=== PATIENT | female | born 1960 | race Caucasian/White ===

== ENCOUNTER 2025-08-25 10:42 | Inpatient (IN) | payer MEDICARE, SELFPAY ==
[2025-08-25] VITALS (12 sets, daily range): BP systolic 138–203; BP diastolic 59–103; PULSE 85–117; RESP 12–23; TEMP 36.2–36.6; O2SAT 93–99; BMI 34.2; BMI 33.7
--- NOTE | 2025-08-25 10:56 | DI.RAD.S_ITS ---
PROCEDURE: XR CHEST 1V INDICATIONS: Chest Pain TECHNIQUE: One view of the chest was acquired. COMPARISON: None. FINDINGS: Surgical changes and devices: None. Lungs and pleura: Lungs are clear. No pleural effusions or pneumothorax. Mediastinum: Mediastinal contours appear normal. Heart size is normal. Bones and chest wall: No suspicious bony lesions. Overlying soft tissues appear unremarkable. IMPRESSION: No acute cardiopulmonary abnormality is seen. Approved by: Wilfredo Ríos M.D. on 08/25/2025 at 11:34
--- NOTE | 2025-08-25 11:14 | EKG_ITS ---
[place] [id number] [place] [id number] Test Date: 2025-08-25 Pat Name: Radha Randhawa Department: [facility] Room: Gender: Female [employer]: BEL : 1960 Requested By: Order Number: [id number] Reading MD: Byron Anand Measurements Intervals [place] Rate: 110 P: 65 NH: 184 QRS: 7 QRSD: 78 T: 84 QT: 340 QTc: 460 Interpretive Statements Sinus tachycardia Low voltage QRS Nonspecific T wave abnormality Electronically Signed On 08-28-2025 12:54:05 PST by Byron Anand
[2025-08-25 11:49] LABS: Add Manual Diff / Slide Review NO; Hematocrit 50.2 % (36-46); Hemoglobin 17.4 g/dL (12.0-16.0); Lymphocytes Absolute Auto 1600 /uL (1100-4500); Mean Corpuscular HGB Conc 34.7 % (30-36); Mean Corpuscular Hemoglobin 30.5 PG (26-34); Mean Corpuscular Volume 87.9 fL (80-100); Platelet Count 242 X10^3/uL (150-400)
[2025-08-25 11:58] LABS: Alanine Aminotransferase 79 IU/L (<35); Albumin 4.6 g/dL (3.5-5.0); Albumin Globulin Ratio 1.2 (1.0-2.8); Alkaline Phosphatase 159 U/L (38-126); Blood Urea Nitrogen 18 mg/dL (7-17); Calcium 9.4 mg/dL (8.4-10.2); Carbon Dioxide 28 mmol/L (22-32); Chloride 97 mmol/L (98-107); Creatine Kinase 27 U/L (30-135); Estimated Glomerular Filt Rate > 60 mL/min (>60); Globulin 4.0 g/dL (1.7-4.1); Glucose 387 mg/dL (70-99); HEMOLYSIS < 15 (0-50); Lipase 67 U/L (23-300); Magnesium 1.8 mg/dL (1.6-2.3); Potassium 5.0 mmol/L (3.4-5.1); Sodium 135 mmol/L (137-145); Total Protein 8.6 g/dL (6.3-8.2)
[2025-08-25 11:59] LABS: INR 1.0 (0.9-1.3); Prothrombin Time 11.7 SECONDS (9.4-12.5)
[2025-08-25 12:02] LABS: PTT Partial Thromboplastin Tim 34 SECONDS (25.1-36.5)
[2025-08-25 12:10] LABS: NT-proBNP (BNP-Adult 18+) < 20 pg/mL (<125); Troponin I < 0.012 ng/mL (0.01-0.034)
--- NOTE | 2025-08-25 13:15 | DI.CT.S_ITS ---
PROCEDURE: CT ANGIO HEAD AND NECK INDICATIONS: Numbness on L side of body TECHNIQUE: After the administration of intravenous contrast, 1 mm thick sections acquired from the aortic arch through the Jackson of Tariq. 3-dimensional vgikexx-onieceyle-nrddeqlwlt (MIP) and/or volume rendering reformats were acquired of the central intracranial vasculature and neck separately. For radiation dose reduction, the following was used: automated exposure control, adjustment of mA and/or kV according to patient size. COMPARISON: [facility], CT, CT STROKE, 08/25/2025, 13:25. FINDINGS: Image quality: Diagnostic. Cerebral CT Angiogram: Internal carotid arteries: No acute findings. Intracranial ICA are patent with no significant stenosis. No occlusion. No aneurysm. Anterior cerebral arteries: Unremarkable. No significant stenosis. No occlusion. No aneurysm. Middle cerebral arteries: Unremarkable. No significant stenosis. No occlusion. No aneurysm. Posterior cerebral arteries: Unremarkable. No significant stenosis. No occlusion. No aneurysm. Basilar artery: There is a moderate to severe focal proximal basilar artery stenosis. Reference coronal image 131 of series 5. Vertebral arteries: Left vertebral artery ends in PICA. Right vertebral artery is patent and tortuous. It gives rise to the basilar artery. Dural venous sinuses: Unremarkable given phase of enhancement. Other: Arterial phase appearance of the brain parenchyma is unremarkable. Neck CT Angiogram: Internal carotid arteries: Less than 50% bilateral proximal internal carotid artery stenosis.. No dissection or occlusion. Common carotid arteries: Unremarkable. No significant stenosis. No dissection or occlusion. External carotid arteries: Unremarkable. No occlusion. Vertebral arteries: Left vertebral artery ends in PICA. Right vertebral artery is tortuous. It gives rise to the basilar artery. Aortic Arch and Mediastinum: Partially visualized aortic arch unremarkable without evidence of aneurysm. Origins of the great vessels unremarkable. Other: Arterial phase soft tissues of the neck and chest are unremarkable. IMPRESSION: 1. Left vertebral artery is incidentally noted to end in PICA. 2. Moderate to severe focal basilar artery stenosis. 3. Otherwise unremarkable CTA head. 4. Bilateral less than 50% proximal internal carotid artery stenosis. Any quantitative measurements of stenosis were performed using NASCET criteria. Dictated by: Roscoe Sales M.D. on 08/25/2025 at 13:47 Approved by: Roscoe Sales M.D. on 08/25/2025 at 13:58
--- NOTE | 2025-08-25 13:15 | DI.CT.S_ITS ---
PROCEDURE: CT STROKE INDICATIONS: Numbness on L side of body TECHNIQUE: Noncontrast 4.5 mm thick angled axial sections acquired from the foramen magnum to the vertex, with coronal reformats. For radiation dose reduction, the following was used: automated exposure control, adjustment of mA and/or kV according to patient size. COMPARISON: None. FINDINGS: Image quality: Diagnostic. CSF spaces: Basal cisterns are patent. No extra-axial fluid collections. The ventricles are symmetric in size and shape. Brain: No intracranial bleeds or mass effect. There is cerebral volume loss, with resultant ventricular and sulcal prominence. There are periventricular and deep white matter chronic small vessel ischemic changes. There is intracranial internal carotid artery atherosclerosis. Skull and face: Calvarium and visualized facial bones appear intact, without suspicious lesions. Sinuses: Air-fluid level in left maxillary sinus. Dependent soft tissue in right maxillary sinus. Right sphenoid sinus mucosal thickening. Minimal patchy ethmoid disease. IMPRESSION: No acute intracranial pathology. Acute on chronic sinus disease. Comment: Findings were discussed with Dr. Mclain on 08/25/2025 at 1338 hours This study fulfills neurological imaging criteria for inclusion or exclusion of acute stroke therapies based on available published neurological guidelines. Dictated by: Roscoe Sales M.D. on 08/25/2025 at 13:37 Approved by: Roscoe Sales M.D. on 08/25/2025 at 13:44
--- NOTE | 2025-08-25 13:16 | DI.MRI.S_ITS ---
PROCEDURE: MR HEAD/BRAIN WO CON INDICATIONS: Numbness TECHNIQUE: Non-contrast axial T1 spin echo, axial T2 fast spin echo, sagittal and axial FLAIR, coronal T2 fast spin echo, axial gradient echo, axial diffusion and ADC through the brain. COMPARISON: [facility], CT, CT STROKE, 08/25/2025, 13:25. FINDINGS: Image quality: Excellent. CSF spaces: Ventricles appear symmetric in size and shape. Basal cisterns are patent. No extra-axial fluid collections. Brain: Small focus of diffusion restriction in the right thalamus. There is associated mild T2/FLAIR signal abnormality. No mass effect or hemorrhagic conversion. Small focus of chronic encephalomalacia in the genu of the corpus callosum on the right. There is mild cerebral volume loss for age. Skull and face: Calvarial bone marrow is normal in signal. Orbits are normal. Sinuses: Air-fluid levels are seen in the maxillary sinuses bilaterally. Mild diffuse mucosal thickening in the paranasal sinuses. Mastoid air cells are clear. IMPRESSION: Small focus of diffusion restriction in the right thalamus is compatible with a recent infarct. No significant mass effect or hemorrhagic conversion. Approved by: Wilfredo Ríos M.D. on 08/25/2025 at 14:56
--- NOTE | 2025-08-25 13:26 | ED_ITS ---
HPI - Neuro Symptoms/Deficit General Chief Complaint: Neuro Symptoms/Deficit Stated Complaint: Tingling on left side . Time Seen by Provider: 08/25/25 12:44 Mode of arrival: Ambulatory History of Present Illness HPI Narrative: 65-year-old female with no significant cardiac history, no stroke history, history of hypertension and hyperlipidemia, presenting with acute onset left face arm and leg numbness today. States she checked her blood pressure which was 149 systolic at the time. Upon arriving to the ER above 200 systolic, patient attributes this to anxiety. denies fevers, chills, nausea, vomiting, diarrhea, abdominal pain, chest pain, shortness of breath, dizziness, headache, or urinary symptoms. On Anticoagulants: No Related Data Home Medications ?Medication ?Instructions ?Recorded ?Confirmed cyclobenzaprine 10 mg tablet 5 mg PO DAILY 08/25/25 irbesartan 300 mg tablet 300 mg PO DAILY 08/25/2512/15 levothyroxine 150 mcg tablet 150 mcg PO DAILY 08/25/25 08/25/25 (Euthyrox) Previous Rx's ?Medication ?Instructions ?Recorded amlodipine 5 mg tablet 5 mg PO BID #180 tabs aspirin 81 mg tablet,delayed 81 mg PO DAILY #100 tabs 08/27/25 release atorvastatin 20 mg tablet 80 mg (4 x 20 mg) PO BEDTIME #90 08/27/25 tabs clopidogrel 75 mg tablet 75 mg PO DAILY #21 tabs 02/14 Allergies Allergy/AdvReac Type Severity Reaction Status Date / Time Sulfa (Sulfonamide Allergy Severe Rash Verified 08/25/25 10:52 Antibiotics) Review of Systems Review of Systems ROS Unobtainable: All systems reviewed & are unremarkable except as noted in HPI and below Hematologic/Lymphatic On Anticoagulants: No Patient History Social History household members: spouse Smoking Status: Never smoker alcohol intake: never Smoking Status: Never smoker Exam Initial Vital Signs Initial Vital Signs: Vital Signs Pulse Rate 116 H 08/25/25 10:48 Respiratory Rate 16 08/25/25 10:48 Blood Pressure 203/99 H 08/25/25 10:48 Pulse Oximetry 96 08/25/25 10:48 Oxygen Delivery Method Room Air 08/25/25 10:48 Const General: cooperative, healthy appearing, comfortable, well developed and well hydrated Nutritional Appearance: average body habitus HENMT Head: normal to inspection Ears: external ears normal Nose: external nose normal and nares normal Face and sinus: sinuses nontender, face symmetric, ecchymosis not on the right, not on the left and not bilaterally, erythema not on the right, not on the left and not bilaterally and edema not on the right, not on the left and not bilaterally Mouth: lip normal Eyes General: Yes appearance normal, both eyes and all related structures Eyelids: eyelids normal Sclera: sclerae normal Pupils: PERRL Neck Neck: normal visual inspection Resp Effort & Inspection: normal respiratory effort and able to speak in complete sentences Cardio Rate: regular rate Rhythm: regular rhythm Pulses: radial pulses present GI Inspection: normal to inspection and non-distended General: bimanual renal exam normal bilaterally Back/Spine/Pelvis Back: normal to inspection Skin General: no rashes or lesions noted Neuro General: patient alert, patient awake, patient oriented x3, gait normal, moves all extremities, normal light touch, pain and propioception, no focal motor deficits and CN's II-XI intact bilaterally Cognition: normal cognition Speech: speech normal Gait: normal gait Motor: muscle tone normal throughout Sensory Exam: no sensory deficits noted Extrem General: normal to inspection Psych Appearance: grossly normal Mental Status: mental status grossly normal Speech and Movement: speech and movement normal Mood: congruent mood Attitude: cooperative Thought Process: normal Thought Content: normal Judgment: judgment good Course Orders Ordered: Discontinued Medications Acetaminophen (Acetaminophen 325 Mg Tablet) 650 mg PO Q6H PRN PRN Reason: Fever/Mild Pain (1-3) Amlodipine Besylate (Amlodipine 5 Mg Tablet) 5 mg PO NOW ONE Stop: 08/26/25 08:17 Last Admin: 08/26/25 08:26 Dose: 5 mg Documented By: ED Amlodipine Besylate (Amlodipine 5 Mg Tablet) 5 mg PO BID [facility] Last Admin: 08/27/25 08:41 Dose: 5 mg Documented By: Admin: 08/26/25 22:06 Dose: 5 mg Documented By: Admin: 08/26/25 20:23 Dose: 5 mg Documented By: RADHA Aspirin (Aspirin 81 Mg Chew Tab) 324 mg PO NOW ONE Stop: 08/25/25 10:57 Aspirin (Aspirin Ec 81 Mg Tablet) 81 mg PO NOW ONE Stop: 08/25/25 15:37 Last Admin: 08/25/25 17:54 Dose: 81 mg Documented By: JOSE Aspirin (Aspirin Ec 81 Mg Tablet) 81 mg PO DAILY [facility] Last Admin: 08/27/25 08:41 Dose: 81 mg Documented By: Admin: 08/26/25 08:27 Dose: 81 mg Documented By: ED Atorvastatin Calcium (Atorvastatin 20 Mg Tablet) 80 mg PO BEDTIME [facility] Last Admin: 08/26/25 20:23 Dose: 80 mg Documented By: Admin: 08/25/25 21:40 Dose: 80 mg Documented By: SULLY Clopidogrel Bisulfate (Clopidogrel 75 Mg Tablet) 300 mg PO NOW ONE Stop: 08/25/25 15:37 Last Admin: 08/25/25 17:53 Dose: 300 mg Documented By: JOSE Clopidogrel Bisulfate (Clopidogrel 75 Mg Tablet) 75 mg PO DAILY [facility] Last Admin: 08/27/25 08:41 Dose: 75 mg Documented By: Admin: 08/26/25 08:27 Dose: 75 mg Documented By: ED Cyclobenzaprine HCl (Cyclobenzaprine 10 Mg Tablet) 5 mg PO DAILY [facility] Last Admin: 08/27/25 08:32 Dose: Not Given Documented By: GUILHERME Sodium Chloride (Normal Saline 0.9%) 1,870 mls @ 1,870 mls/hr 20 ml/kg infuse over 1 hr (1870 ml) IV NOW ONE Stop: 08/25/25 15:38 Last Infusion: 08/25/25 19:13 Dose: Infused Documented By: Admin: 08/25/25 15:15 Dose: 1,870 mls/hr Documented By: SHERRIE Labetalol HCl (Labetalol 20 Mg/4 Ml Syringe) 20 mg IV NOW ONE Stop: 08/25/25 13:23 Last Admin: 08/25/25 14:08 Dose: 20 mg Documented By: SHERRIE Levothyroxine Sodium (Levothyroxine 75 Mcg Tablet) 150 mcg PO DAILY@0600 [facility] Last Admin: 08/27/25 05:58 Dose: 150 mcg Documented By: Admin: 08/26/25 15:06 Dose: 150 mcg Documented By: ED Losartan Potassium (Losartan 50 Mg Tablet) 100 mg PO DAILY [facility] Last Admin: 08/27/25 08:41 Dose: 100 mg Documented By: GUILHERME Naloxone HCl (Naloxone 0.4 Mg/Ml Vial) 0.2 mg IV Q2MIN PRN PRN Reason: Opiate Reversal Non-Formulary Medication (Levothyroxine [Euthyrox]) 150 mcg PO DAILY [facility] Ondansetron HCl (Ondansetron 4 Mg/2 Ml Inj) 4 mg IV Q8HR PRN PRN Reason: Nausea And Vomiting Vital Signs Vital signs: Vital Signs - 8 hr 08/25/25 10:48 Pulse Rate 116 H Respiratory Rate 16 Blood Pressure 203/99 H Pulse Oximetry 96 Oxygen Delivery Method Room Air MDM - Neuro Symptoms/Deficit Lab Data 08/25/25 11:32 08/25/25 11:32 Labs: Lab Results 08/25/25 08/25/25 Range/Units 11:32 14:14 WBC 6.5 (4.5-11.0) X10^3/uL RBC 5.71 H (4.0-5.2) X10^6/uL Hgb 17.4 H (12.0-16.0) g/dL Hct 50.2 H (36-46) % MCV 87.9 (80-100) fL MCH 30.5 (26-34) PG MCHC 34.7 (30-36) % RDW 14.2 (11.6-14.8) % Plt Count 242 (150-400) X10^3/uL Neut % (Auto) 65.7 (50-75) % Lymph % (Auto) 25.3 (25-40) % Brown % (Auto) 6.0 (3-14) % Eos % (Auto) 1.8 L (2-4) % Baso % (Auto) 1.2 (0-2) % Neut # (Auto) 4300 (1174-9675) /uL Lymph # (Auto) 1600 (3647-0554) /uL Brown # (Auto) 400 (0-900) /uL Eos # (Auto) 100 (0-450) /uL Baso # (Auto) 100 (0-100) /uL PT 11.7 (9.4-12.5) SECONDS INR 1.0 (0.9-1.3) APTT 34 (25.1-36.5) SECONDS Sodium 135 L (137-145) mmol/L Potassium 5.0 (3.4-5.1) mmol/L Chloride 97 L (98-107) mmol/L Carbon Dioxide 28 (22-32) mmol/L BUN 18 H (7-17) mg/dL Creatinine 0.62 (0.52-1.04) mg/dL Estimated GFR > 60 (>60) mL/min BUN/Creatinine Ratio 29.0 H (6-22) Glucose 387 H (70-99) mg/dL Hemoglobin A1c 11.8 H (4.0-6.0) % Calcium 9.4 (8.4-10.2) mg/dL Magnesium 1.8 (1.6-2.3) mg/dL Total Bilirubin 0.7 (0.2-1.3) mg/dL AST 82 H (14-36) IU/L ALT 79 H (<35) IU/L Alkaline Phosphatase 159 H (38-126) U/L Total Creatine Kinase 27 L 30 (30-135) U/L Troponin I < 0.012 < 0.012 (0.01-0.034) ng/mL NT-Pro-B Natriuret Pep < 20 (<125) pg/mL Total Protein 8.6 H (6.3-8.2) g/dL Albumin 4.6 (3.5-5.0) g/dL Globulin 4.0 (1.7-4.1) g/dL Albumin/Globulin Ratio 1.2 (1.0-2.8) Triglycerides 303 H (35-150) mg/dL Cholesterol 261 H (140-199) mg/dL LDL Cholesterol, Calc 166 H (<100) mg/dL HDL Cholesterol 34 L (40-60) mg/dL Lipase 67 (23-300) U/L Ethyl Alcohol < 10 (<10) mg/dL MDM Narrative Medical decision making narrative: CODE Stroke: Pt presents with stroke like sxg. Chest x-ray to evaluate for evidence of CHF. EKG/troponin to evaluate for evidence of arrhythmia/ACS/AMI. Labwork to evaluate for evidence of anemia, electrolyte abnl including hypokalemia, hyperkalemia, hyponatremia, hypernatremia, hyperglycemia, hypoglycemia. CT brain to evaluate for evidence of mass/CVA/TIA. Patient with NIHSS of 0, negative test of skew, slightly abnormal gait. Will admit pending MRI due to high possibility of CVA Discharge Plan Departure Patient Disposition: Admitted As Inpatient Clinical Impression: Cerebrovascular accident Admit Date/Time: 08/25/25 15:45 Admit Provider: Jonatan Marks
[2025-08-25] MEDS: LABETALOL 20 MG/4 ML SYRINGE IV (14:08)
[2025-08-25 14:39] LABS: Creatine Kinase 30 U/L (30-135); Ethanol (ETOH) < 10 mg/dL (<10)
[2025-08-25 14:51] LABS: Troponin I < 0.012 ng/mL (0.01-0.034)
--- NOTE | 2025-08-25 16:29 | DI.ECHO.S_ITS ---
[facility] : : [address] : : [place] : : [id number] : : Phone: [phone] Echocardiogram Report + + :Name: PAUL GARNICA Study Date: 08/26/2025 Height: 65 in : :[facility] ReadingLocation: Weight: 203 lb : : Gender: Female BSA: 2.0 m2 : :: 1960 Age: 65 yrs BP: 165/100 mmHg: :Reason For Study: STROKE : :Ordering Physician: BAILEY : :DEANA Performed By: Andrea Donahue : :Referring: DEANA AVALOS : + + Interpretation Summary Left ventricular wall thickness is mildly increased. The ejection fraction is estimated to be 55-60%. Normal diastolic function. The right ventricle is normal in size and function. No significant valvular abnormalities. Pulmonary artery pressures cannot be estimated because of the lack of a measurable TR jet velocity. Procedure: A two-dimensional transthoracic echocardiogram with color flow and Doppler was performed. The study quality was technically adequate. There is no prior echocardiogram noted for this patient. The patient was in normal sinus rhythm during the exam. Left Ventricle: The left ventricle is normal in size. Left ventricular wall thickness is mildly increased. There is no ventricular septal defect visualized. The ejection fraction is estimated to be 55-60%. There are no focal wall motion abnormalities. Normal diastolic function. Right Ventricle: The right ventricle is normal in size and function. Atria: The left atrial size is normal. Right atrium not well visualized. The interatrial septum is not well visualized. Mitral Valve: There is mild mitral annular calcification. The mitral valve leaflets are mildly calcified. There is no mitral regurgitation noted. Aortic Valve: The aortic valve is slightly calcified. There is no aortic valve stenosis. No aortic regurgitation is present. Tricuspid Valve: The tricuspid valve is not well visualized, but is grossly normal. No tricuspid regurgitation. Pulmonary artery pressures cannot be estimated because of the lack of a measurable TR jet velocity. Pulmonic Valve: The pulmonic valve is not well visualized. There is no pulmonic valvular regurgitation. Great Vessels: The aortic root is normal size. The ascending aorta could not be visualized. The pulmonary is not well visualized. The inferior vena cava was not visualized. Pericardium/ Pleura There is no pericardial effusion. MMode/2D Measurements & Calculations LVIDd: 4.5 cm LVOT diam: 2.0 cm LVIDs: 3.1 cm Ao root diam: 3.3 cm FS: 30.9 % EPSS: 0.63 cm IVSd: 1.1 cm LVPWd: 1.1 cm LV antony. diameter/BSA (cm/m^2): 2.2 LV sys. diameter/BSA (cm/m^2): 1.5 LA A2 area: 16.6 cm2 TAPSE: 2.0 cm LA A4 area: 16.3 cm2 LA length (vol): 4.8 cm LA vol: 48.0 ml LA vol index: 24.1 ml/m2 Doppler Measurements & Calculations Ao V2 max: 116.7 cm/sec LVOT Max Blayne: 88.3 cm/sec Ao V2 mean: 83.3 cm/sec LV V1 max P.1 mmHg Ao max P.4 mmHg LV V1 VTI: 17.9 cm Ao mean P.0 mmHg AARON(I,D): 2.7 cm2 Ao V2 VTI: 20.9 cm AARON(V,D): 2.4 cm2 sev ratio: 0.85 AARON indexed to BSA (cm^2/m^2): 1.4 MV E max blayne: 75.8 cm/sec PA V2 max: 96.7 cm/sec MV A max blayne: 89.0 cm/sec PA V2 mean: 69.4 cm/sec MV E/A: 0.85 PA mean P.1 mmHg Med Peak E' Blayne: 6.8 cm/sec PA pr(Accel): 53.3 mmHg E/E' med: 11.2 Lat Peak E' Blayne: 9.4 cm/sec E/E' lat: 8.0 E/e' average: 9.6 MV dec time: 0.17 sec SV(LVOT): 57.1 ml Reading Physician:11:40 AM
[2025-08-25 17:31] LABS: Cholesterol 261 mg/dL (140-199); HDL Cholesterol 34 mg/dL (40-60); Triglycerides 303 mg/dL (35-150)
[2025-08-25 17:34] LABS: Hemoglobin A1C% w Est Avg Glu 11.8 % (4.0-6.0)
--- NOTE | 2025-08-25 17:37 | P.HP_ITS ---
History of Present Illness History of Present Illness Date Patient Seen: 08/25/25 Chief complaint: Tingling on left side right basal ganglia infarct Narrative: Chief complaint: Tingling left-sided left-sided weakness secondary to basal ganglia infarct with contralateral right facial asymmetry History of present illness: 08/25: 65-year-old female with a history of refractory hypertension over 30 years acute onset of left face arm and leg numbness today checked her blood pressure which was 149 at the time but greater than 200 systolic. She has been on antihypertensives per her report but does not remember what these are Findings in the emergency department significant for: Systolic blood pressure greater than 200 Total cholesterol 261 LDL 166 HDL 34 triglycerides 303 MRI demonstrating: Acute Right thalamic infarct CT angiography demonstratin. Left vertebral artery is incidentally noted to end in PICA. 2. Moderate to severe focal basilar artery stenosis. 3. Otherwise unremarkable CTA head. 4. Bilateral less than 50% proximal internal carotid artery stenosis. Patient received loading dose of aspirin 325 and Plavix 300 mg in the emergency depart. Review of systems: No fever or chills rigors No headache diplopia blurred vision No chest pain palpitations shortness for breath No abdominal pain diarrhea constipation No rest pain Physical examination: Elderly female no acute distress HEENT slight facial asymmetry right compared to left Neck left carotid bruit Heart rate and rhythm regular no murmurs Lungs clear Extremities no edema neurologic exam: NIH score 0 Slight right-sided facial palsy compared to left Tongue does not deviate Visual pickens intact Extraocular motions intact Normal strength in right upper extremity 4/5 in left upper extremity and 4 5 in left lower extremity can not stand on left leg alone Negative Romberg Normal [id number] Right thalamic infarct with high-grade stenosis in basilar artery which may be culprit * Good response to loading dose of Plavix and aspirin * Dual antiplatelet * High-intensity statin * Permissive hypertension * Start low-dose amlodipine tomorrow * Case discussed with Neurology on-call and [facility] Dr. Rhodes who is in agreement with the treatment and does not feel that intervention other than medical is indicated DVT prophylaxis: * Subcutaneous heparin Code status: * Full code blue Disposition: * Inpatient expect 2 days of hospitalization Time based billing: * 35 minutes were involved in the evaluation of this patient including [id number] evaluation physical examination complex neurologic examination review of objective laboratory findings and imaging including direct visualization of imaging discussion with emergency provider [facility] Social History Smoking Status: Never smoker Meds Home Medications and Allergies Allergies Allergy/AdvReac Type Severity Reaction Status Date / Time Sulfa (Sulfonamide Allergy Severe Rash Verified 08/25/25 10:52 Antibiotics) Exam Vital Signs (past 8 hours): - 08/25/25 10:48 08/25/25 14:08 08/25/25 14:55 Pulse Rate 116 H 117 H 87 Respiratory Rate 16 Blood Pressure 203/99 H 183/88 H Pulse Oximetry 96 93 Oxygen Delivery Method Room Air 08/25/25 14:57 08/25/25 14:57 08/25/25 15:00 Pulse Rate 89 86 Respiratory Rate 16 12 Blood Pressure 138/96 H Pulse Oximetry 93 93 Oxygen Delivery Method 08/25/25 15:00 08/25/25 15:30 08/25/25 15:30 Pulse Rate 85 Respiratory Rate 19 Blood Pressure 147/93 H 161/69 H Pulse Oximetry 94 Oxygen Delivery Method 08/25/25 16:00 08/25/25 16:21 08/25/25 16:21 Pulse Rate 88 86 Respiratory Rate 23 20 Blood Pressure 176/79 H Pulse Oximetry 95 94 Oxygen Delivery Method 08/25/25 16:30 08/25/25 16:30 08/25/25 17:05 Pulse Rate 85 87 Respiratory Rate 18 19 Blood Pressure 161/59 H Pulse Oximetry 94 Oxygen Delivery Method Room Air Oxygen Delivery Method Room Air Objective Labs 08/25/25 11:32 08/25/25 11:32 Labs: Laboratory Results - last 24 hr 08/25/25 08/25/25 11:32 14:14 WBC 6.5 RBC 5.71 H Hgb 17.4 H Hct 50.2 H MCV 87.9 MCH 30.5 MCHC 34.7 RDW 14.2 Plt Count 242 Neut % (Auto) 65.7 Lymph % (Auto) 25.3 Gaines % (Auto) 6.0 Eos % (Auto) 1.8 L Baso % (Auto) 1.2 Neut # (Auto) 4300 Lymph # (Auto) 1600 Gaines # (Auto) 400 Eos # (Auto) 100 Baso # (Auto) 100 PT 11.7 INR 1.0 APTT 34 Sodium 135 L Potassium 5.0 Chloride 97 L Carbon Dioxide 28 BUN 18 H Creatinine 0.62 Estimated GFR > 60 BUN/Creatinine Ratio 29.0 H Glucose 387 H Calcium 9.4 Magnesium 1.8 Total Bilirubin 0.7 AST 82 H ALT 79 H Alkaline Phosphatase 159 H Total Creatine Kinase 27 L 30 Troponin I < 0.012 < 0.012 NT-Pro-B Natriuret Pep < 20 Total Protein 8.6 H Albumin 4.6 Globulin 4.0 Albumin/Globulin Ratio 1.2 Triglycerides 303 H Cholesterol 261 H LDL Cholesterol, Calc 166 H HDL Cholesterol 34 L Lipase 67 Ethyl Alcohol < 10 Assessment & Plan Time-Based Coding :: [TOTAL MINUTES] spent with patient and on the chart (including review of chart, obtaining history, exam, reviewing outside data, placing orders, documenting exam and treatment plan, and counseling patient) on [DATE].
[2025-08-25] MEDS: CLOPIDOGREL 75 MG TABLET 300 MG PO (17:53)
[2025-08-25] MEDS: ASPIRIN EC 81 MG TABLET PO (17:54)
--- NOTE | 2025-08-25 19:15 | PC.NURSE ---
Patient denies anymore tingling to the left side. At this time her NIH scale is a O. She is on tele, NSR.
[2025-08-25] MEDS: ATORVASTATIN 20 MG TABLET 80 MG PO (21:40)
[2025-08-26 01:00] VITALS: BP 165/100; PULSE 85; RESP 16; TEMP 36.4; O2SAT 97
[2025-08-26 05:00] VITALS: BP 133/93; PULSE 84; RESP 16; TEMP 36.6; O2SAT 94
[2025-08-26 08:17] VITALS: BP 174/101; PULSE 87; RESP 18; TEMP 36.3; O2SAT 97
[2025-08-26] MEDS: CLOPIDOGREL 75 MG TABLET PO (08:27)
[2025-08-26] MEDS: ASPIRIN EC 81 MG TABLET PO (08:27)
--- NOTE | 2025-08-26 09:45 | PT.IIE ---
Addendum entered and electronically signed by Tracy Coleman, PT 08/26/25 11:15: note sent to Physician for sign off on plan of care Original Note: Physical Therapy Inpatient Evaluation/Re-Eval M1 PT IP Prior Functional Status Start: 08/26/25 10:23 Freq: NEEDED Status: Active Protocol: Document 08/26/25 09:45 DLM (Rec: 08/26/25 10:42 DLM Desktop) Medical Review Prior Functional Status Medical History Yes Reviewed Diet/Fluid Regular Consistency Communication glasses, WNL Mobility and Gait Independent, no device, active, has taken exercise class at [employer], walks for exercise in good weather Activities of Daily Independent. She likes to noelle nichols cook. In the Living and IADL's summer she gardens. She drives Social History Household Members spouse Living Arrangements House Number of Floors ( One Floor Floors) Number of Stairs To 2 steps, can hold one rail Enter/Railing? Home Environment Standard Height Toilet,High Toilet,Tub/Shower Employment Status Retired Additional Social has walking stick History Comment M2 PT-IP Current Condition Start: 08/26/25 10:23 Freq: NEEDED Status: Active Protocol: Document 08/26/25 09:45 DLM (Rec: 08/26/25 10:42 DLM Desktop) Physical Therapy Current Condition Current Condition Evaluation Date 08/26/25 Treatment Diagnosis Right thalamic infarct, left hemiparesis Onset Date 08/25/25 M3 PT-IP Subjective Start: 08/26/25 10:23 Freq: NEEDED Status: Active Protocol: Document 08/26/25 09:45 DLM (Rec: 08/26/25 10:42 DLM Desktop) Subjective Physical Therapy Visit Type Type Initial Evaluation Visit Start Time 09:00 Visit Stop Time 09:45 Notes 45 min Number of CIRCULAR SAWYER STONE Visits 0 Physical Therapy Visit Comments Patient Comments She reports sleeping poorly last night due to being at the hospital. She states left facial numbness has improved. Her left UE feels heavy and dyscoordinated. She has been able to use her left hand functionally. Patient Goals She wants to go home and be independent Therapy Pain Assessment Pain When Pain Assessed During Mobility Pain Present Pain Present Denied Pain M4 PT-IP Mobility and Gait Start: 08/26/25 10:23 Freq: NEEDED Status: Active Protocol: Document 08/26/25 09:45 DLM (Rec: 08/26/25 10:42 DLM Desktop) PT-Bed Mobility Assessment Rolling Level of Assist Independent Supine to Sit Supine to Sit Independent Sit to Supine Sit to Supine Independent Scooting Scooting to Edge of Independent Bed Scooting Up and Down Independent in Bed PT-Transfer Assessment Sit to and From Stand Sit to and from Independent Stand Equipment Transfer Assistive Gait Belt Device Transfers Transfer Destination Bed,Chair Transfer Technique Stand Step Pivot Transfer Ability Level of Assist Independent Gait Assessment Gait Gait Assistance Standby Assistance Required: Distance (Feet) 250 Assistive Devices Assistive Device Gait Belt Gait Deviations General Gait Pattern Antalgic,Decreased Stride Length,Decreased Feet Clearance Factors Limiting Gait Function Factors Limiting Decreased Activity Tolerance,Incoordination Gait Function Comments Gait Comments mild right lean during gait without loss of balance, mild decreased feet clearance with left worse than right, mild decreased coordination left LE in swing phase Stair Climbing Assessment Evaluation Level of Assist On Standby Assistance Stairs Devices Stair Climbing Left Railing Assistive Devices Technique/Endurance Stair Climbing Ascend and Descend Direction Stair Climbing Step Over Step Technique Number of Steps 3 Climbed Query Text: Stair Climbing Set # 2 Repetitions (reps) Comments Stair Climbing she needs verbal cues for safe placement of left foot Comments on step, left foot intermittently is half off the step PT-Balance Assessment Sitting Balance and Reactions Static Sitting Normal Balance Ability Dynamic Sitting Normal Balance Ability Standing Balance and Reactions Static Standing Good Balance Ability Dynamic Standing Fair Balance Ability Balance Tests Single Limb Standing unsteady on right, left 3 sec Romberg increased sway with drift to right Tandem Standing needs assist to hold Comments Other Balance Tests/ pt needed UE support to place feet together in standing Deviations/Treatment , no loss of balance with head motions up/down but mild : losses of balance with right/left head turns in static standing M5 PT-IP Objective Assessments Start: 08/26/25 10:23 Freq: NEEDED Status: Active Protocol: Document 08/26/25 09:45 DLM (Rec: 08/26/25 10:42 DLM Desktop) Orientation Orientation/Cognition Level of Alertness Alert Orientation Name,Age,Birthday,Month,Date,Year,Day of Week,Place, Situation Language Function No Deficits Noted Ability Safety Awareness Understands Safety Issues Memory Description No Deficits Noted Comments decreased awareness of deficits that improved with education Gross Range of Motion Upper Extremity ROM Assessment Within Functional Limits Lower Extremity ROM Assessment Within Functional Limits Strength Upper Extremity Strength Assessment Within Functional Limits Lower Extremity Strength Assessment Within Functional Limits Coordination Assessment Gross Coordination Gross Coordination Impaired Assessment Foot Tapping Test Minimal Impairment Heel on Knight Test Minimal Impairment Sensation Assessment Sensation Gross Sensation Left UE Impaired Sensation Numbness Description Comments Sensation Comments mild numbness in face that is improving, mild numbness in UE and LE but can feel touch Muscle Tone Muscle Tone WNL Yes M6 PT-IP Treatment Start: 08/26/25 10:23 Freq: NEEDED Status: Active Protocol: Document 08/26/25 09:45 DLM (Rec: 08/26/25 10:42 DLM Desktop) Physical Therapy Treatment Exercises Exercises Ankle Pumps Education Education Provided Safety Other Treatments Other Treatment Educated pt on clinical findings this visit, Her Spouse Performed arrived during this visit and he participated in education, Education to decrease her fall risks including monitoring left side during mobility to prevent trips/ slips, using night lights, slowing pace of gait to improve left LE function especially on stairs M7 PT-IP Assessment and Plan Start: 08/26/25 10:23 Freq: NEEDED Status: Active Protocol: Document 08/26/25 09:45 DLM (Rec: 08/26/25 10:42 DLM Desktop) PT Summary Assessment and Plan Potential Rehabilitation Good Potential Status of Condition Evolving at Evaluation Summary Impairments Balance,Coordination,Sensation,Gait,Activity Tolerance Assessment Summary Radha is alert and sitting up in the recliner today. She was admitted with left sided symptoms and MRI shows right thalamic infarct. Clinically she presents with mild left UE and LE deficits of decreased coordination and decreased proprioception. She has a left UE drift with testing. Noted left UE posturing during gait and mobility. She is using left UE and LE functionally. Her balance testing shows a mild to moderate impairment in her midline orientation with a right drift. Her gait shows decreased coordination in left LE during swing phase of gait. Pt feels safe to discharge home with her Spouse when she is medically stable. Recommend discharge home with out-pt Physical Therapy when she leaves the hospital. 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 5 sec each LE Days to Meet Goals 5 Frequency of Treatment Frequency Of Once a Day Treatment Treatment Plan Physical Therapy Gait Training,Therapeutic Exercise,Balance Retraining, Treatment Plan Discharge Planning,Neuromuscular Re-ed,Coordination Retraining Other focus on left sided coordination Recommendations and Next Treatment Focus Precautions Other Precautions labile blood pressure Recommendations To Nursing Amount of Assist Standby Assistance Needed Discharge Recommendations PT Discharge Home,Outpatient PT Recommendations Other Discharge Spouse is able to assist if needed Recommendations Transportation Needs Private Vehicle at Discharge - PT assist 1
--- NOTE | 2025-08-26 09:50 | PC.NURSE ---
Patient doing well this morning, having a little difficulty with leg when amublating but did well with PT. Her blood pressure was 190 systolic and 5mg of amlodipine given. She ate breakfast and is resting comfortably.
--- NOTE | 2025-08-26 10:04 | SLP.IPNOTE ---
Chart reviewed and RN consulted. RN reported pt passed nursing swallow screen and reported no concerns re: speech, language, or cognition. Pt agreeable to COLOR TESTER screen. Spouse at bedside. Pt reported initial left-sided facial tingling and weakness have fully resolved at this point. She denied overt s/sx of dysphagia. She expressed no changes to speech, language, or cognitive-communication function. Pt's speech was clear and intelligible. She was able to discuss history and respond to questions about baseline function without difficulty. She stated she feels back to normal and her spouse was in agreement. No further COLOR TESTER services are warranted at this time as pt is back to baseline, though she may benefit from PT/OT given ongoing weakness/tingling of left-sided extremities per pt report. Recommended pt monitor overall speech, language, swallowing, and cognition function and consult her PCP if she notes any changes following discharge. Pt agreeable to plan.
--- NOTE | 2025-08-26 11:10 | OT.IP.EVAL ---
Occupational Therapy Inpatient Evaluation/Re-Eval M1 OT IP Prior Functional Status Start: 08/26/25 11:11 Freq: Status: Active Protocol: Document 08/26/25 11:11 [facility] (Rec: 08/26/25 11:29 [facility] Desktop) Medical Review Prior Functional Status Medical History Yes Reviewed Diet/Fluid Regular Consistency Communication glasses, WNL Mobility and Gait Independent, no device, active, has taken exercise class at [employer], walks for exercise in good weather Activities of Daily Independent. She likes to noelle nichols cook. In the Living and IADL's summer she gardens. She drives Social History Household Members spouse Living Arrangements House Number of Floors ( One Floor Floors) Number of Stairs To 2 steps, can hold one rail Enter/Railing? Home Environment Standard Height Toilet,High Toilet,Tub/Shower Employment Status Retired Additional Social has walking stick History Comment M2 OT-IP Current Condition Start: 08/26/25 11:11 Freq: Status: Active Protocol: Document 08/26/25 11:11 [facility] (Rec: 08/26/25 11:29 [facility] Desktop) Occupational Therapy Current Condition Current Condition Evaluation Date 08/26/25 Treatment Diagnosis Right thalamic CVA Diagnosis Onset Date 08/25/25 M3 OT- IP Subjective and Pain Start: 08/26/25 11:11 Freq: Status: Active Protocol: Document 08/26/25 11:11 [facility] (Rec: 08/26/25 11:29 [facility] Desktop) OT- Subjective Occupational Therapy Visit Type Type Initial Evaluation Visit Start Time 10:25 Visit Stop Time 11:10 Occupational Therapy Visit Comments Patient Comments Pt agreed to get up for oral care needs and do cognitive assessments. Patient/Caregiver TO go home. Goals OT Pain Assessment Pain When Pain Assessed At Rest Pain Present Pain Present Denied Pain M4 OT- IP ADL's Start: 08/26/25 11:11 Freq: Status: Active Protocol: Document 08/26/25 11:11 [facility] (Rec: 08/26/25 11:29 [facility] Desktop) OT [id number] Comments OT Self-Feeding Not at meal time. Comments OT ADL-Grooming General Evaluation Areas Needing Retrieving/Set-up of Grooming Items Assistance Comments OT Grooming Comments Set-up to open items. OT ADL-Oral Care General Eval Areas of Assistance Retrieving/Set-Up of Items Comments Oral Care Comments Set-up to opens. OT ADL-Dressing Comments OT Dressing Comments Pt will need assist for buttons and zippers. OT ADL-Toileting General Evaluation Toileting Ability Independent M5 OT- IP IADL's Start: 08/26/25 11:11 Freq: Status: Active Protocol: Document 08/26/25 11:11 [facility] (Rec: 08/26/25 11:29 [facility] Desktop) OT-Instrumental Activities of Daily Living Home Safety Awareness Awareness of Need Good Awareness for Assistance at Home Ability to Problem Able to Problem Solve Solve Emergency Situations Medication Management Medication Pt will benefit from supervision. Management Comments Money Management Money Management Pt will benefit from supervision. Comments Meal Preparation Meal Preparation Pt suggested to stay away from knifes and sharp objects Comments due to decreased proprioception with left hand initially. Otherwise to be very mindful visually what she is doing. 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 Comments Driving Driving Comments Pt aware that she is going to not drive at this time. M6 OT- IP Functional Cognition Start: 08/26/25 11:11 Freq: Status: Active Protocol: Document 08/26/25 11:11 [facility] (Rec: 08/26/25 11:29 [facility] Desktop) Cognitive Factors Limiting Selfcare Function Cognitive Ability Level of Alertness Alert Patient Orientation Name,Age,Birthday,Month,Date,Year,Day of Week,Place, Situation Attention Span Capable of Focused Attention,Capable of Sustained Ability Attention Ability to Follow Able to Follow Multi-Step Commands Commands Memory Description Short Term Impaired Safety Awareness No Deficits Noted Problem Solving No deficits Noted Ability Cognitive Tests SLUMS Pt scored 24/30 which implies mild neurocognitive disorder, pt able to recall 3/5 objects after time passed, not able to draw the hour hands correctly after time given, and able to answer 3/4 questions right after time passed. Cognitive Comments Cognitive Assessment Pt admits that recently she has been having more Comments difficulty with her STM. Went over strategies to help improve her STM. OT- Vision and Hearing OT- Hearing Assessment OT- Hearing WFL Assessment OT- Vision Assessment Visual Acuity Glasses All The Time Visual Attentiveness WFL Occular Pursuits WFL Visual Convergence WFL Visual Morrow WFL Vision Assessment When testing her for depth perception, pt able to do. Comments However when putting on toothpaste pt a little off with her perception. M7 OT- IP Mobility and Balance Start: 08/26/25 11:11 Freq: Status: Active Protocol: Document 08/26/25 11:11 [facility] (Rec: 08/26/25 11:29 [facility] Desktop) OT-Transfer Assessment Sit to and From Stand Sit to and from Independent Stand Transfers Transfer Ability Independent OT- Balance Assessment Sitting Balance and Reactions Static Sitting Normal Balance Ability Dynamic Sitting Normal Balance Ability Standing Balance and Reactions Static Standing Normal Balance Ability Dynamic Standing Good Balance Ability M8 OT- IP Objective Assessments Start: 08/26/25 11:11 Freq: Status: Active Protocol: Document 08/26/25 11:11 [facility] (Rec: 08/26/25 11:29 [facility] Desktop) OT Gross Range of Motion Upper Extremity Range of Motion Assessment Within Functional Limits OT Strength Upper Extremity Strength Assessment Within Functional Limits Hand Supervisor Title Strength Hand Dominance Right OT- Coordination Assessment Upper Extremity Finger to Nose Test Left UE Impaired Comments Coordination Mildly off with left hand. Comments OT Sensation Assessment Comments Summary Comments Numbness in right finger tips, decreased proprioception with left arm. Pt at time tends to posture left arm, mild neglect as well noted. M9 OT- IP Assessment and Plan Start: 08/26/25 11:11 Freq: Status: Active Protocol: Document 08/26/25 11:11 [facility] (Rec: 08/26/25 11:29 [facility] Desktop) OT Summary Assessment and Plan Potential Rehabilitation Excellent Potential Analytic Complexity Moderate at Evaluation Summary OT Impairments Balance,Coordination,Functional Cognition,Functional Mobility,Self-Feeding,Grooming,Dressing,Toileting, Bathing,Toilet Transfers,Shower Transfers,Activity Tolerance Progress Towards Progressing Toward Goals Goals Assessment Summary Pt Mod complexity and main barriers are decreased proprioception with left side of her body, mild neglect left side, decreased coordination and mild neurocognitive disorder as scored 24/30 on the SLUMS. Pt feels that she has not slept well and attributing to her not thinking as well as usual. Pt scored 38 sec with left hand and 21 sec with right hand for 9 hole peg test. Left hand below 10% for her age and right hand around 75% for her age. Pt scored 107 seconds for Soldier Making Part B which implies mild to moderate impairments for visual attention, speed of processing, task switching, executive functioning, and mental flexibility . Pt will benefit from assist at home and outpt therapy. Pt will also benefit from a shower chair and HHSP. Goals Self-Feeding Goal Independent Grooming Goal Independent Dressing Goal Independent Toileting Goal Independent Toilet Transfer Goal Independent Shower Transfer Goal Independent Days to Meet Goals 5 Frequency of Treatment Other frequency 5x/week Treatment Plan OT Treatment Plan ADL Training,Functional Cognition Training,Functional Mobility,Patient/Family Education,Discharge Planning Discharge Recommendations OT Discharge Home with Assistance,Outpatient PT Recommendations Transportation Needs Private Vehicle at Discharge
--- NOTE | 2025-08-26 12:04 | CM.DANOTE ---
Initial DCP Assessment Note. Review EMR and PT Interview. Met with patient at bedside to discuss discharge needs.PT is alert x 4 sitting up in chair. No acute distress. Independent. Lives with spouse.. Payor:??[facility] PCP: ?Volodymyr Schultz Summary & Plan:?65 female arrived to ED via POV c/o tingling to left Side. Admitted INPT. Dx. Thalamic CVA. Plan: Head MRI. PT Eval. Discharge Planning/Care Management CM Discharge Assessment Start: 08/25/25 17:32 Freq: Status: Active Protocol: Document 08/26/25 11:46 (Rec: 08/26/25 12:03 [id number]) Discharge Planning Assessment Assigned Discharge Isaura Frazier RN CM Education General Manager Provider Dr. Volodymyr Schultz ph# [phone] Insurance Medicare Advance Directives? Yes Advance Directives No on File History Provided By Patient,Medical Record Prior Living House Arrangements Household Members spouse Type of Drives own vehicle transporation used prior to admit Independent with ADL Yes 's Is patient alert and Yes oriented? Caregiver for No Another Patient/Family OP PT Therapy Preference Barriers to No Discharge Review Status In Process Please Provide Date 08/26/25 Initial DC Assessment Was Performed Next Review Type Continued Stay Review
[2025-08-26 12:47] VITALS: BP 158/85; PULSE 96; RESP 16; TEMP 36.3; O2SAT 98
--- NOTE | 2025-08-26 14:21 | P.PN_ITS ---
Subjective Subjective Date Patient Seen: 08/26/25 Interval history: Chief complaint: Tingling left-sided left-sided weakness secondary to basal ganglia infarct with contralateral right facial asymmetry History of present illness: 08/25: 65-year-old female with a history of refractory hypertension over 30 years acute onset of left face arm and leg numbness today checked her blood pressure which was 149 at the time but greater than 200 systolic. She has been on antihypertensives per her report but does not remember what these are Findings in the emergency department significant for: Systolic blood pressure greater than 200 Total cholesterol 261 LDL 166 HDL 34 triglycerides 303 MRI demonstrating: Acute Right thalamic infarct CT angiography demonstratin. Left vertebral artery is incidentally noted to end in PICA. 2. Moderate to severe focal basilar artery stenosis. 3. Otherwise unremarkable CTA head. 4. Bilateral less than 50% proximal internal carotid artery stenosis. Patient received loading dose of aspirin 325 and Plavix 300 mg in the emergency depart. Hospital course: 08/26: Did not sleep well overnight blood pressure systolic 200 this morning started on amlodipine 5 mg resumed her Avapro patient is ambulating today with better strength in the left lower extremity and diminished but better strength in the left upper extremity we will continue to monitor her blood pressure throughout the day and probable discharge tomorrow Review of systems: No fever or chills rigors No headache diplopia blurred vision No chest pain palpitations shortness for breath No abdominal pain diarrhea constipation No rest pain Physical examination: Elderly female no acute distress HEENT slight facial asymmetry right compared to left Neck left carotid bruit Heart rate and rhythm regular no murmurs Lungs clear Extremities no edema neurologic exam: NIH score 0 Slight right-sided facial palsy compared to left Tongue does not deviate Visual pickens intact Extraocular motions intact Normal strength in right upper extremity 4/5 in left upper extremity and 4 5 in left lower extremity can not stand on left leg alone Negative Romberg Normal [id number] Right thalamic infarct with high-grade stenosis in basilar artery which may be culprit * Good response to loading dose of Plavix and aspirin * Dual antiplatelet * High-intensity statin * Permissive hypertension * Start low-dose amlodipine 5 mg b.i.d. together with Avapro * Case discussed with Neurology on-call and [facility] Dr. Rhodes who is in agreement with the treatment and does not feel that intervention other than medical is indicated DVT prophylaxis: * Patient is ambulatory Code status: * Full code blue Disposition: * Inpatient expect 2 days of hospitalization Time based billing: * 35 minutes were involved in the evaluation of this patient including [id number] evaluation physical examination complex neurologic examination review of objective laboratory findings and imaging including direct visualization of imaging discussion with emergency provider Exam Vital Signs (past 8 hours): - 08/26/25 08:17 08/26/25 12:47 Temperature 97.4 F L 97.4 F L Pulse Rate 87 96 H Respiratory Rate 18 16 Blood Pressure 174/101 H 158/85 H Pulse Oximetry 97 98 Oxygen Flow Rate 0 Oxygen Delivery Method Room Air Oxygen Flow Rate 0 Objective Labs 08/25/25 11:32 08/25/25 11:32 Labs: Laboratory Results - last 24 hr 08/25/25 08/25/25 11:32 14:14 Hemoglobin A1c 11.8 H Total Creatine Kinase 30 Troponin I < 0.012 Triglycerides 303 H Cholesterol 261 H LDL Cholesterol, Calc 166 H HDL Cholesterol 34 L Ethyl Alcohol < 10 PFSH Social History household members: spouse Smoking Status: Never smoker alcohol intake: never Assessment & Plan Time-Based Coding :: [TOTAL MINUTES] spent with patient and on the chart (including review of chart, obtaining history, exam, reviewing outside data, placing orders, documenting exam and treatment plan, and counseling patient) on [DATE]. Quality VTE Deep Vein Thrombosis/Pulmonary Embolism Present on Admission: No
[2025-08-26] MEDS: LEVOTHYROXINE 75 MCG TABLET 150 MCG PO (15:06)
[2025-08-26 16:00] VITALS: BP 141/70; PULSE 94; RESP 15; TEMP 36.6; O2SAT 95
[2025-08-26 20:00] VITALS: BP 175/93; PULSE 92; RESP 18; TEMP 36.5; O2SAT 99
[2025-08-26] MEDS: ATORVASTATIN 20 MG TABLET 80 MG PO (20:23)
[2025-08-27] VITALS: BP 122/78; PULSE 86; RESP 17; TEMP 36.6; O2SAT 95
[2025-08-27 04:00] VITALS: BP 138/83; PULSE 99; RESP 17; TEMP 36.6; O2SAT 94
[2025-08-27] MEDS: LEVOTHYROXINE 75 MCG TABLET 150 MCG PO (05:58)
[2025-08-27 08:29] VITALS: BP 153/88; PULSE 85; RESP 14; TEMP 36.2; O2SAT 93
[2025-08-27 08:41] VITALS: BP 153/88; PULSE 85
[2025-08-27] MEDS: ASPIRIN EC 81 MG TABLET PO (08:41)
[2025-08-27] MEDS: CLOPIDOGREL 75 MG TABLET PO (08:41)
[2025-08-27] MEDS: LOSARTAN 50 MG TABLET 100 MG PO (08:41)
--- NOTE | 2025-08-27 08:51 | P.DS_ITS ---
History of Present Illness History of Present Illness Date Patient Seen: 08/27/25 Chief complaint: Tingling on left side right basal ganglia infarct Narrative: Chief complaint: Tingling left-sided left-sided weakness secondary to basal ganglia infarct with contralateral right facial asymmetry History of present illness: 08/25: 65-year-old female with a history of refractory hypertension over 30 years acute onset of left face arm and leg numbness today checked her blood pressure which was 149 at the time but greater than 200 systolic. She has been on antihypertensives per her report but does not remember what these are Findings in the emergency department significant for: Systolic blood pressure greater than 200 Total cholesterol 261 LDL 166 HDL 34 triglycerides 303 MRI demonstrating: Acute Right thalamic infarct CT angiography demonstratin. Left vertebral artery is incidentally noted to end in PICA. 2. Moderate to severe focal basilar artery stenosis. 3. Otherwise unremarkable CTA head. 4. Bilateral less than 50% proximal internal carotid artery stenosis. Patient received loading dose of aspirin 325 and Plavix 300 mg in the emergency depart. Hospital course: 08/26: Did not sleep well overnight blood pressure systolic 200 this morning started on amlodipine 5 mg resumed her Avapro patient is ambulating today with better strength in the left lower extremity and diminished but better strength in the left upper extremity we will continue to monitor her blood pressure throughout the day and probable discharge tomorrow Review of systems: No fever or chills rigors No headache diplopia blurred vision No chest pain palpitations shortness for breath No abdominal pain diarrhea constipation No rest pain Physical examination: Alert oriented no acute distress No labored respirations Extremities no edema neurologic exam: NIH score 0 Extraocular motions intact Ambulates Right thalamic infarct with high-grade stenosis in basilar artery which may be culprit * Good response to loading dose of Plavix and aspirin * Dual antiplatelet for 21 days then aspirin * High-intensity statin Lipitor 80 mg daily * Case discussed with Neurology on-call and [facility] Dr. Rhodes who is in agreement with the treatment and does not feel that intervention other than medical is indicated DVT prophylaxis: * Subcutaneous heparin Code status: * Full code blue Disposition: * Discharge home Time based billing: * 35 minutes were involved in the evaluation of this patient including [id number] evaluation physical examination complex neurologic examination review of objective laboratory findings and imaging including direct visualization of imaging discussion with emergency provider Discharge Providers Provider Date of admission: 08/25/25 15:45 Discharge Date: 08/27/25 Consults: 08/25/25 16:29 Consult to Discharge Planning Routine Comment: Consult to Occupational Therapy Evaluate & Treat Comment: Physician Instructions: Evaluate and treat Consult to Physical Therapy Evaluate & Treat Comment: Physician Instructions: Evaluate and Treat Consult to Speech Therapy Evaluate & Treat Comment: Physician Instructions: Evaluate and treat Discharge provider: Jonatan Marks MD Exam Vital Signs (past 8 hours): - 08/27/25 04:00 08/27/25 08:29 Temperature 97.8 F 97.2 F L Pulse Rate 99 H 85 Respiratory Rate 17 14 Blood Pressure 138/83 153/88 H Pulse Oximetry 94 93 Oxygen Flow Rate 0 0 Oxygen Delivery Method Room Air Oxygen Flow Rate 0 Objective Labs 08/25/25 11:32 08/25/25 11:32 PFSH Social History household members: spouse Smoking Status: Never smoker alcohol intake: never Discharge Plan Discharge Plan Patient Disposition: Home Discharge orders & Medications Prescriptions: New atorvastatin 20 mg Tablet 80 mg PO BEDTIME Qty: 90 0RF clopidogrel 75 mg Tablet 75 mg PO DAILY Qty: 21 0RF amlodipine 5 mg Tablet 5 mg PO BID Qty: 180 0RF aspirin 81 mg Tablet,Delayed Release (Dr/Ec) 81 mg PO DAILY Qty: 100 0RF Continued cyclobenzaprine 10 mg tablet 5 mg PO DAILY levothyroxine [Euthyrox] 150 mcg tablet 150 mcg PO DAILY irbesartan 300 mg tablet 300 mg PO DAILY Discontinued rosuvastatin [Crestor] 5 mg tablet 5 mg PO DAILY Visit Report/Discharge Packet Stand Alone Forms: Patient Portal/API, Stroke Signs & Symptoms Quality VTE Deep Vein Thrombosis/Pulmonary Embolism Present on Admission: No
--- NOTE | 2025-08-27 09:20 | OT.IP.TRT ---
Current Diagnoses Cerebral infarction, unspecified (08/25/25) Occupational Therapy Treatment Note M2 OT-IP Current Condition Start: 08/26/25 11:11 Freq: Status: Active Protocol: Document 08/26/25 11:11 [facility] (Rec: 08/26/25 11:29 [facility] Desktop) Occupational Therapy Current Condition Current Condition Evaluation Date 08/26/25 Treatment Diagnosis Right thalamic CVA Diagnosis Onset Date 08/25/25 M3 OT- IP Subjective and Pain Start: 08/26/25 11:11 Freq: Status: Active Protocol: Document 08/27/25 09:29 [facility] (Rec: 08/27/25 09:36 [facility] Desktop) OT- Subjective Occupational Therapy Visit Type Type Treatment Note Visit Start Time 09:05 Visit Stop Time 09:20 Occupational Therapy Visit Comments Patient Comments Pt not wanting to redo 9-hole peg test at this time but open to going over FMS. Patient/Caregiver TO go home and shower. Goals OT Pain Assessment Pain When Pain Assessed At Rest Pain Present Pain Present Denied Pain M4 OT- IP ADL's Start: 08/26/25 11:11 Freq: Status: Active Protocol: Document 08/26/25 11:11 [facility] (Rec: 08/26/25 11:29 [facility] Desktop) OT [id number] Comments OT Self-Feeding Not at meal time. Comments OT ADL-Grooming General Evaluation Areas Needing Retrieving/Set-up of Grooming Items Assistance Comments OT Grooming Comments Set-up to open items. OT ADL-Oral Care General Eval Areas of Assistance Retrieving/Set-Up of Items Comments Oral Care Comments Set-up to opens. OT ADL-Dressing Comments OT Dressing Comments Pt will need assist for buttons and zippers. OT ADL-Toileting General Evaluation Toileting Ability Independent M5 OT- IP IADL's Start: 08/26/25 11:11 Freq: Status: Active Protocol: Document 08/26/25 11:11 [facility] (Rec: 08/26/25 11:29 [facility] Desktop) OT-Instrumental Activities of Daily Living Home Safety Awareness Awareness of Need Good Awareness for Assistance at Home Ability to Problem Able to Problem Solve Solve Emergency Situations Medication Management Medication Pt will benefit from supervision. Management Comments Money Management Money Management Pt will benefit from supervision. Comments Meal Preparation Meal Preparation Pt suggested to stay away from knifes and sharp objects Comments due to decreased proprioception with left hand initially. Otherwise to be very mindful visually what she is doing. Glass Silverer Glass Silverer Pt will benefit from at least supervision. Comments Driving Driving Comments Pt aware that she is going to not drive at this time. M6 OT- IP Functional Cognition Start: 08/26/25 11:11 Freq: Status: Active Protocol: Document 08/26/25 11:11 [facility] (Rec: 08/26/25 11:29 [facility] Desktop) Cognitive Factors Limiting Selfcare Function Cognitive Ability Level of Alertness Alert Patient Orientation Name,Age,Birthday,Month,Date,Year,Day of Week,Place, Situation Attention Span Capable of Focused Attention,Capable of Sustained Ability Attention Ability to Follow Able to Follow Multi-Step Commands Commands Memory Description Short Term Impaired Safety Awareness No Deficits Noted Problem Solving No deficits Noted Ability Cognitive Tests SLUMS Pt scored 24/30 which implies mild neurocognitive disorder, pt able to recall 3/5 objects after time passed, not able to draw the hour hands correctly after time given, and able to answer 3/4 questions right after time passed. Cognitive Comments Cognitive Assessment Pt admits that recently she has been having more Comments difficulty with her STM. Went over strategies to help improve her STM. OT- Vision and Hearing OT- Hearing Assessment OT- Hearing WFL Assessment OT- Vision Assessment Visual Acuity Glasses All The Time Visual Attentiveness WFL Occular Pursuits WFL Visual Convergence WFL Visual Morrow WFL Vision Assessment When testing her for depth perception, pt able to do. Comments However when putting on toothpaste pt a little off with her perception. M7 OT- IP Mobility and Balance Start: 08/26/25 11:11 Freq: Status: Active Protocol: Document 08/27/25 09:29 [facility] (Rec: 08/27/25 09:36 [facility] Desktop) OT- Bed Mobility Assessment Supine to Sit Supine to Sit Assist Standby Assistance Sit to Supine Sit to Supine Assist Standby Assistance OT-Transfer Assessment Sit to and From Stand Sit to and from Independent Stand Transfers Transfer Ability Independent Comments Mobility Comments VC to be mindful of her left hand placement when pushing up from the bed. Pt independent on her feet. 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 OT Sensation Assessment Comments Summary Comments Pt states still has a little numbness in her finger tips and encouraged her to have good lighting, sharron and be mindful of what her left hand is doing. M9 OT- IP Assessment and Plan Start: 08/26/25 11:11 Freq: Status: Active Protocol: Document 08/27/25 09:29 [facility] (Rec: 08/27/25 09:36 [facility] Desktop) OT Summary Assessment and Plan Potential Rehabilitation Excellent Potential Analytic Complexity Moderate at Evaluation Summary OT Impairments Balance,Coordination,Functional Cognition,Functional Mobility,Self-Feeding,Grooming,Dressing,Toileting, Bathing,Toilet Transfers,Shower Transfers,Activity Tolerance Progress Towards Progressing Toward Goals Goals Assessment Summary Pt states feeling better after having slept last night. Pt states will shower at home with her present and then to decide if she needs a shower chair or not. Pt well aware that she will not drive at this time. Pt to go home with her to assist and ask primary for PT therapy. Goals Bathing Goal Independent Shower Transfer Goal Independent Days to Meet Goals 2 Treatment Plan OT Treatment Plan ADL Training,Functional Cognition Training,Functional Mobility,Patient/Family Education,Discharge Planning Discharge Recommendations OT Discharge Home with Assistance,Outpatient PT Recommendations Transportation Needs Private Vehicle at Discharge
--- NOTE | 2025-08-27 12:39 | PC.NURSE ---
Pt discharged home at 1220, escorted off floor in wheelchair accompanied by hospital staff and spouse. IV removed, tele d/c'd, discharge teaching completed including new medications, worsening symptoms and follow up appointments. patient left the floor with all belongings.
== END 2025-08-27 12:47 | disposition home or self-care (01) | DRG 65 ==
LOC: ED 15:42 → AC 15:47
PROVIDERS: Admitting Provider Internal Medicine; Emergency Provider Emergency Medicine; Referring Provider Emergency Medicine; Visit Provider Internal Medicine
DX: I63.22 Cerebral infarction due to unspecified occlusion or stenosis of basilar artery (principal); G81.94 Hemiplegia, unspecified affecting left nondominant side; R29.810 Facial weakness; I10 Essential (primary) hypertension; E78.5 Hyperlipidemia, unspecified; R29.700 NIHSS score 0; R29.701 NIHSS score 1; R26.9 Unspecified abnormalities of gait and mobility
CPT/HCPCS: 36415; 70450; 70496; 70498; 70551; 71045; 80053; 80061; 80320; 82550; 83036; 83690; 83735; 83880; 84484; 85025; 85610; 85730; 93005; 93306; 96374; 97162; 97166; 97530; 99285; J7040; Q9967

== ENCOUNTER → 2025-09-21 08:48 | Outpatient (CLI) | payer MEDICARE, SELFPAY ==
[2025-08-25 17:39] VITALS: BMI 33.7
--- NOTE | 2025-09-21 08:51 | DI.US.S_ITS ---
PROCEDURE: US CAROTID DOPPLER BI INDICATIONS: POSTERIOR CEREBRAL ARTERY SYNDROME TECHNIQUE: Color and pulse Doppler interrogation was performed of both carotid systems, with image documentation and velocity measurements. COMPARISON: None. FINDINGS: Stenosis calculations are based on SRU (Society of Radiologists in Ultrasound) criteria. Right side: Common carotid artery peak systolic velocity: 85 cm/sec. Internal carotid artery peak systolic velocity: 69 cm/sec. Internal carotid artery end diastolic velocity: 21 cm/sec. External carotid artery peak systolic velocity: 90 cm/sec. ICA/CCA peak systolic ratio: 0.8 . Kunz scale imaging description: Atherosclerotic plaques Percent internal carotid artery stenosis: Less than 50% . Vertebral artery: Flow direction is antegrade. Left side: Common carotid artery peak systolic velocity: 97 cm/sec. Internal carotid artery peak systolic velocity: 102 cm/sec. Internal carotid artery end diastolic velocity: 28 cm/sec. External carotid artery peak systolic velocity: 130 cm/sec. ICA/CCA peak systolic ratio: 1.1 . Kunz scale imaging description: Atherosclerotic plaques Percent internal carotid artery stenosis: 50% . Vertebral artery: Flow direction is antegrade. IMPRESSION: 1. In the right carotid artery, there is less than 50% stenosis based on peak systolic velocity criteria. 2. In the left carotid artery, there is less than 50% stenosis based on peak systolic velocity criteria. 3. Antegrade vertebral arteries. Dictated by: Edward Irizarry M.D. on 09/21/2025 at 16:05 Approved by: Edward Irizarry M.D. on 09/21/2025 at 16:07
[2025-09-21 11:24] LABS: Add Manual Diff / Slide Review NO; Hematocrit 47.3 % (36-46); Hemoglobin 16.3 g/dL (12.0-16.0); Lymphocytes Absolute Auto 1500 /uL (1100-4500); Mean Corpuscular HGB Conc 34.5 % (30-36); Mean Corpuscular Hemoglobin 30.3 PG (26-34); Mean Corpuscular Volume 87.9 fL (80-100); Platelet Count 265 X10^3/uL (150-400)
[2025-09-21 12:08] LABS: Alanine Aminotransferase 56 IU/L (<35); Albumin 4.5 g/dL (3.5-5.0); Albumin Globulin Ratio 1.5 (1.0-2.8); Alkaline Phosphatase 153 U/L (38-126); Blood Urea Nitrogen 18 mg/dL (7-17); Calcium 9.8 mg/dL (8.4-10.2); Carbon Dioxide 27 mmol/L (22-32); Chloride 99 mmol/L (98-107); Estimated Glomerular Filt Rate > 60 mL/min (>60); Globulin 3.1 g/dL (1.7-4.1); Glucose 394 mg/dL (70-99); HEMOLYSIS < 15 (0-50); Potassium 5.1 mmol/L (3.4-5.1); Sodium 137 mmol/L (137-145); Total Protein 7.6 g/dL (6.3-8.2)
[2025-09-21 12:38] LABS: Thyroid Stimulating Hormone 5.38 uIU/mL (0.47-4.68)
== END ==
LOC: US 08:50
PROVIDERS: PCP Family Medicine; Referring Provider Family Medicine; Visit Provider Family Medicine
DX: I65.23 Occlusion and stenosis of bilateral carotid arteries (principal); G46.2 Posterior cerebral artery syndrome; E03.9 Hypothyroidism, unspecified; I70.0 Atherosclerosis of aorta; R73.9 Hyperglycemia, unspecified; Z13.0 Encounter for screening for diseases of the blood and blood-forming organs and certain disorders involving the immune mechanism
CPT/HCPCS: 36415; 80053; 84443; 85025; 93880